=== PATIENT | male | born 1935 | race Caucasian/White ===

== ENCOUNTER 2019-01-27 12:10 | Inpatient (IN) | payer OTHER ==
[~2019-01-27] VITALS: Ht 172.7 cm; Wt 69.5 kg
[2019-01-27] MEDS ORDERED: SODIUM CHLORIDE 0.9% 1,000 ML IV ONE (12:15)
[2019-01-27] MEDS ORDERED: cefTRIAXone 1GM/50ML D5W 50 ML IV ONE (12:15)
[2019-01-27] MEDS ORDERED: ACETAMINOPHEN 650 mg PER 20 mL UD ONE (13:37)
[2019-01-27] MEDS ORDERED: ACETAMINOPHEN 325 MG TAB PO ONE (13:45)
[2019-01-27] MEDS ORDERED: ACETAMINOPHEN 650 mg PER 20 mL UD GT ONE (13:45)
[2019-01-27 13:49] LABS: Basophils # (auto) 0 uL; Basophils % (auto) 0.1 % (0.0-2.0); Eosinophils # (auto) 0 uL; Hematocrit 42.4 % (41.0-53.0); Hemoglobin 13.9 g/dL (13.5-17.5); Lymphocytes # (auto) 0.5 uL; Lymphocytes % (auto) 4.6 % (10.0-50.0); Mean Corpuscular Hemoglobin 30.2 pg (28.0-32.0); Mean Corpuscular Hgb Conc. 32.8 g/dL (32.0-36.0); Mean Corpuscular Volume 92.1 fL (80.0-100.0); Monocytes # (auto) 0.4 uL; Monocytes % (auto) 3.7 % (0.0-12.0); Neutrophils # (auto) 10.5 uL; Neutrophils % (auto) 91.6 % (37.0-80.0); Platelet Count (auto) 143 10^3/uL (140-450); Red Blood Cells 4.61 10^6/uL (4.5-5.90); Red Cell Distribution Width 13.1 % (11.8-14.3); White Blood Cell 11.5 10^3/uL (4.4-10.8)
[2019-01-27 13:51] LABS: Chloride 107 mmol/L (98-107); Potassium 3.9 mmol/L (3.5-5.1); Sodium 139 mmol/L (136-145)
[2019-01-27 13:56] LABS: Albumin 2.9 g/dL (3.4-5.0); Anion Gap 9 (5-15); Blood Urea Nitrogen 32 mg/dL (7-18); Calcium 7.9 mg/dL (8.5-10.1); Carbon Dioxide 23 mmol/L (21-32); Glucose 113 mg/dL (74-106); INR 1.09 (0.9-1.15); Partial Thromboplastin Time 30.6 sec (23.78-33.04); Prothrombin Time 11.6 sec (9.27-12.13)
[2019-01-27 14:00] LABS: Alanine Aminotransferase 24 U/L (16-61); Aspartate Aminotransferase 65 U/L (15-37); BUN/Creatinine Ratio 29.6; GFR African American 84 mL/min; GFR Non-African American 69 mL/min; Total Protein 6.9 g/dL (6.4-8.2)
[2019-01-27] MEDS ORDERED: ACETAMINOPHEN 650 mg PER 20 mL UD PO ONE (14:00)
[2019-01-27 14:04] LABS: Alkaline Phosphatase 63 U/L (45-117)
[2019-01-27 14:24] LABS: Urine Bacteria NONE SEEN /hpf (None Seen); Urine Blood 3+ /uL (Negative); Urine Budding Yeast OCCASIONAL /hpf (None Seen); Urine Hyaline Cast FEW /lpf (0 - 2); Urine Mucus FEW (None Seen); Urine Specific Gravity 1.022 (1.001-1.035); Urine WBC 3 /hpf (0 - 3)
[2019-01-27] MEDS ORDERED: HYDROcodone-ACET 5/325MG TAB PO PRN (15:00)
[2019-01-27] MEDS ORDERED: ONDANSETRON HCL 4 MG/2 ML VIAL IV PRN (15:00)
[2019-01-27] MEDS ORDERED: ALBUTEROL SULF 2.5 MG/0.5ML(0.5%) NEB SOLN NEB PRN (15:00)
[2019-01-27] MEDS ORDERED: IPRATROPIUM BROM 0.5 MG/2.5ML INH SOL NEB PRN (15:00)
[2019-01-27] MEDS ORDERED: NITROGLYCERIN 0.4 MG SL TAB SL PRN (15:00)
[2019-01-27] MEDS ORDERED: MORPHINE SULF INJ 2 MG/ML SYRINGE 1ML IV PRN ×2 (15:00)
[2019-01-27] MEDS: MULTIPLE VITAMIN 10 ML, MAGNESIUM SULF SDV 50% 8 MEQ, THIAMINE INJ 100 MG in D5W/SOD CH... IV SCH (15:00)
[2019-01-27] MEDS ORDERED: ACETAMINOPHEN 500 MG TAB PO PRN (15:00)
[2019-01-27 15:53] VITALS: BP 144/75
[2019-01-27 15:56] VITALS: BP 144/75
[2019-01-27] MEDS: LEVOFLOXACIN 750MG 150 ML IV SCH (16:08)
[2019-01-27] MEDS: TAMSULOSIN HYDROCHLORIDE 0.4 MG CAP PO SCH (18:14)
[2019-01-27] MEDS: ENSURE CLEAR Mixed Berry 8oz Carton PO SCH (18:14)
[2019-01-27] MEDS: CARBIDOPA W LEVODOPA 10/100mg TABLET PO SCH (22:20)
[2019-01-27 23:07] VITALS: BP 155/69
[2019-01-27 23:15] VITALS: BP 155/69
[2019-01-28] MEDS ORDERED: GABA100C9 PO (01:29)
[2019-01-28] MEDS ORDERED: CARB10TA7 PO (01:29)
[2019-01-28] MEDS ORDERED: TAMS0.4C36 PO (01:29)
[2019-01-28 05:06] VITALS: BP 127/67
[2019-01-28] MEDS: CARBIDOPA W LEVODOPA 10/100mg TABLET PO SCH ×3 (05:57→21:44)
[2019-01-28 06:23] LABS: Basophils # (auto) 0 uL; Basophils % (auto) 0.1 % (0.0-2.0); Eosinophils # (auto) 0 uL; Hematocrit 38.3 % (41.0-53.0); Hemoglobin 13.2 g/dL (13.5-17.5); Lymphocytes # (auto) 0.8 uL; Lymphocytes % (auto) 9.7 % (10.0-50.0); Mean Corpuscular Hemoglobin 31.1 pg (28.0-32.0); Mean Corpuscular Hgb Conc. 34.4 g/dL (32.0-36.0); Mean Corpuscular Volume 90.6 fL (80.0-100.0); Monocytes # (auto) 0.3 uL; Monocytes % (auto) 3.5 % (0.0-12.0); Neutrophils # (auto) 7.4 uL; Neutrophils % (auto) 86.7 % (37.0-80.0); Platelet Count (auto) 132 10^3/uL (140-450); Red Blood Cells 4.23 10^6/uL (4.5-5.90); Red Cell Distribution Width 12.9 % (11.8-14.3); White Blood Cell 8.5 10^3/uL (4.4-10.8)
[2019-01-28 06:40] LABS: Potassium 3.9 mmol/L (3.5-5.1)
[2019-01-28 06:46] LABS: BUN/Creatinine Ratio 28.3
[2019-01-28 08:00] VITALS: BP 137/72
[2019-01-28] MEDS: ENSURE CLEAR Mixed Berry 8oz Carton PO SCH ×3 (08:00→17:43)
[2019-01-28 09:00] VITALS: BP 137/72
[2019-01-28] MEDS: PANTOPRAZOLE 40 MG/10 ML VIAL IV SCH (11:13)
[2019-01-28] MEDS: LEVOFLOXACIN 750MG 150 ML IV SCH (11:13)
[2019-01-28] MEDS: GABAPENTIN 100 MG CAP PO SCH (11:14)
[2019-01-28] MEDS: ASPirin-EC 81 mg tab PO SCH (11:14)
[2019-01-28 13:00] VITALS: BP 134/75
[2019-01-28] MEDS: MULTIPLE VITAMIN 10 ML, MAGNESIUM SULF SDV 50% 8 MEQ, THIAMINE INJ 100 MG in D5W/SOD CH... IV SCH (13:54)
[2019-01-28 17:08] VITALS: BP 157/87
[2019-01-28] MEDS: TAMSULOSIN HYDROCHLORIDE 0.4 MG CAP PO SCH (17:43)
[2019-01-28 21:00] VITALS: BP 136/75
[2019-01-28] MEDS: SENNA 8.6 MG TAB PO SCH (21:42)
[2019-01-28] MEDS: DOCUSATE SOD 100 MG CAP PO SCH (21:48)
[2019-01-29 05:00] VITALS: BP 152/79
[2019-01-29] MEDS: CARBIDOPA W LEVODOPA 10/100mg TABLET PO SCH ×3 (05:46→22:29)
[2019-01-29 06:40] LABS: Basophils # (auto) 0 uL; Basophils % (auto) 0.2 % (0.0-2.0); Eosinophils # (auto) 0 uL; Eosinophils % (auto) 0.5 % (0.0-7.0); Hematocrit 37.4 % (41.0-53.0); Hemoglobin 12.6 g/dL (13.5-17.5); Lymphocytes # (auto) 0.8 uL; Lymphocytes % (auto) 11.9 % (10.0-50.0); Mean Corpuscular Hgb Conc. 33.7 g/dL (32.0-36.0); Mean Corpuscular Volume 91.8 fL (80.0-100.0); Monocytes # (auto) 0.3 uL; Monocytes % (auto) 4.9 % (0.0-12.0); Neutrophils # (auto) 5.5 uL; Neutrophils % (auto) 82.5 % (37.0-80.0); Nucleated Red Blood Cells % 0.1 %; Platelet Count (auto) 139 10^3/uL (140-450); Red Blood Cells 4.07 10^6/uL (4.5-5.90); Red Cell Distribution Width 13.1 % (11.8-14.3); White Blood Cell 6.7 10^3/uL (4.4-10.8)
[2019-01-29 06:52] LABS: BUN/Creatinine Ratio 24.7; Calcium 7.7 mg/dL (8.5-10.1); Magnesium 2.5 mg/dL (1.6-2.6)
[2019-01-29 08:00] VITALS: BP 131/71
[2019-01-29] MEDS: ENSURE CLEAR Mixed Berry 8oz Carton PO SCH ×3 (08:00→17:36)
[2019-01-29 09:38] VITALS: BP 131/71
[2019-01-29] MEDS: LEVOFLOXACIN 750MG 150 ML IV SCH (10:18)
[2019-01-29] MEDS: DOCUSATE SOD 100 MG CAP PO SCH ×2 (10:18→22:00)
[2019-01-29] MEDS: PANTOPRAZOLE 40 MG/10 ML VIAL IV SCH (10:18)
[2019-01-29] MEDS: GABAPENTIN 100 MG CAP PO SCH (10:19)
[2019-01-29] MEDS: ASPirin-EC 81 mg tab PO SCH (10:19)
[2019-01-29] MEDS: MULTIPLE VITAMIN 10 ML, MAGNESIUM SULF SDV 50% 8 MEQ, THIAMINE INJ 100 MG in D5W/SOD CH... IV SCH (12:35)
[2019-01-29 14:00] VITALS: BP 156/82
[2019-01-29] MEDS: ENOXAPARIN SOD 40 MG/0.4 ML SYRINGE SC SCH (14:19)
[2019-01-29 17:00] VITALS: BP 130/59
[2019-01-29] MEDS: TAMSULOSIN HYDROCHLORIDE 0.4 MG CAP PO SCH (17:36)
[2019-01-29 22:00] VITALS: BP 150/72
[2019-01-29] MEDS: SENNA 8.6 MG TAB PO SCH (22:29)
[2019-01-30 05:43] VITALS: BP 106/69
[2019-01-30] MEDS: CARBIDOPA W LEVODOPA 10/100mg TABLET PO SCH ×3 (05:56→22:17)
[2019-01-30] MEDS: ENSURE CLEAR Mixed Berry 8oz Carton PO SCH ×3 (09:03→18:00)
[2019-01-30] MEDS: DOCUSATE SOD 100 MG CAP PO SCH ×2 (09:04→22:00)
[2019-01-30] MEDS: LEVOFLOXACIN 750MG 150 ML IV SCH (09:04)
[2019-01-30] MEDS: PANTOPRAZOLE 40 MG/10 ML VIAL IV SCH (09:04)
[2019-01-30] MEDS: GABAPENTIN 100 MG CAP PO SCH (09:05)
[2019-01-30] MEDS: ENOXAPARIN SOD 40 MG/0.4 ML SYRINGE SC SCH (09:05)
[2019-01-30] MEDS: ASPirin-EC 81 mg tab PO SCH (09:22)
[2019-01-30] MEDS: MULTIPLE VITAMIN 10 ML, MAGNESIUM SULF SDV 50% 8 MEQ, THIAMINE INJ 100 MG in D5W/SOD CH... IV SCH (12:34)
[2019-01-30 16:34] VITALS: BP 106/69
[2019-01-30 17:00] VITALS: BP 142/74
[2019-01-30 17:15] VITALS: BP 96/51
[2019-01-30] MEDS: TAMSULOSIN HYDROCHLORIDE 0.4 MG CAP PO SCH (18:03)
[2019-01-30 21:49] VITALS: BP 151/77
[2019-01-30] MEDS: SENNA 8.6 MG TAB PO SCH (22:17)
[2019-01-31 05:33] VITALS: BP 159/85
[2019-01-31] MEDS: CARBIDOPA W LEVODOPA 10/100mg TABLET PO SCH ×3 (05:49→21:55)
[2019-01-31] MEDS: ENSURE CLEAR Mixed Berry 8oz Carton PO SCH ×3 (08:00→18:27)
[2019-01-31 08:17] VITALS: BP 140/79
[2019-01-31] MEDS: GABAPENTIN 100 MG CAP PO SCH (10:47)
[2019-01-31] MEDS: PANTOPRAZOLE 40 MG/10 ML VIAL IV SCH (10:47)
[2019-01-31] MEDS: ENOXAPARIN SOD 40 MG/0.4 ML SYRINGE SC SCH (10:48)
[2019-01-31] MEDS: DOCUSATE SOD 100 MG CAP PO SCH ×2 (11:06→21:55)
[2019-01-31] MEDS: ASPirin-EC 81 mg tab PO SCH (11:07)
[2019-01-31] MEDS: LEVOFLOXACIN 750MG 150 ML IV SCH (11:08)
[2019-01-31 11:34] VITALS: BP 137/64
[2019-01-31] MEDS: MULTIPLE VITAMIN 10 ML, MAGNESIUM SULF SDV 50% 8 MEQ, THIAMINE INJ 100 MG in D5W/SOD CH... IV SCH (12:09)
[2019-01-31 16:43] VITALS: BP 132/76
[2019-01-31] MEDS: TAMSULOSIN HYDROCHLORIDE 0.4 MG CAP PO SCH (18:42)
[2019-01-31 21:00] VITALS: BP 146/73
[2019-01-31] MEDS: SENNA 8.6 MG TAB PO SCH (21:55)
[2019-02-01 04:50] VITALS: BP 159/84
[2019-02-01] MEDS: CARBIDOPA W LEVODOPA 10/100mg TABLET PO SCH ×3 (06:04→21:54)
[2019-02-01] MEDS: ENSURE CLEAR Mixed Berry 8oz Carton PO SCH ×3 (08:00→17:48)
[2019-02-01 09:09] VITALS: BP 141/74
[2019-02-01] MEDS: ASPirin-EC 81 mg tab PO SCH (09:17)
[2019-02-01] MEDS: LEVOFLOXACIN 750MG 150 ML IV SCH (09:17)
[2019-02-01] MEDS: ENOXAPARIN SOD 40 MG/0.4 ML SYRINGE SC SCH (09:18)
[2019-02-01] MEDS: GABAPENTIN 100 MG CAP PO SCH (09:18)
[2019-02-01] MEDS: DOCUSATE SOD 100 MG CAP PO SCH ×2 (09:25→21:54)
[2019-02-01] MEDS: PANTOPRAZOLE 40 MG/10 ML VIAL IV SCH (09:25)
[2019-02-01 12:37] VITALS: BP 129/72
[2019-02-01] MEDS: MULTIPLE VITAMIN 10 ML, MAGNESIUM SULF SDV 50% 8 MEQ, THIAMINE INJ 100 MG in D5W/SOD CH... IV SCH (14:29)
[2019-02-01 16:35] VITALS: BP 128/72
[2019-02-01] MEDS: TAMSULOSIN HYDROCHLORIDE 0.4 MG CAP PO SCH (17:48)
[2019-02-01] MEDS: SENNA 8.6 MG TAB PO SCH (21:54)
[2019-02-01 22:00] VITALS: BP 160/77
[2019-02-02 05:00] VITALS: BP 154/95
[2019-02-02] MEDS: CARBIDOPA W LEVODOPA 10/100mg TABLET PO SCH ×3 (06:17→21:58)
[2019-02-02] MEDS: ENSURE CLEAR Mixed Berry 8oz Carton PO SCH ×3 (08:00→18:22)
[2019-02-02 09:00] VITALS: BP 156/80
[2019-02-02] MEDS: ASPirin-EC 81 mg tab PO SCH (10:00)
[2019-02-02] MEDS: GABAPENTIN 100 MG CAP PO SCH (10:00)
[2019-02-02] MEDS: DOCUSATE SOD 100 MG CAP PO SCH ×2 (10:00→21:57)
[2019-02-02] MEDS: LEVOFLOXACIN 750MG 150 ML IV SCH (10:41)
[2019-02-02] MEDS: ENOXAPARIN SOD 40 MG/0.4 ML SYRINGE SC SCH (10:41)
[2019-02-02] MEDS: PANTOPRAZOLE 40 MG/10 ML VIAL IV SCH (10:41)
[2019-02-02 13:00] VITALS: BP 129/72
[2019-02-02] MEDS: MULTIPLE VITAMIN 10 ML, MAGNESIUM SULF SDV 50% 8 MEQ, THIAMINE INJ 100 MG in D5W/SOD CH... IV SCH (13:31)
[2019-02-02 16:23] VITALS: BP 156/80
[2019-02-02 16:47] VITALS: BP 143/84
[2019-02-02] MEDS: TAMSULOSIN HYDROCHLORIDE 0.4 MG CAP PO SCH (18:00)
[2019-02-02] MEDS: SENNA 8.6 MG TAB PO SCH (21:57)
[2019-02-02 23:38] VITALS: BP 144/79
[2019-02-03 05:00] VITALS: BP 152/82
[2019-02-03] MEDS: CARBIDOPA W LEVODOPA 10/100mg TABLET PO SCH ×2 (05:28→13:51)
[2019-02-03] MEDS: ENSURE CLEAR Mixed Berry 8oz Carton PO SCH ×3 (08:00→17:46)
[2019-02-03 09:00] VITALS: BP 149/76
[2019-02-03] MEDS: DOCUSATE SOD 100 MG CAP PO SCH (10:00)
[2019-02-03] MEDS: ASPirin-EC 81 mg tab PO SCH (10:00)
[2019-02-03] MEDS: GABAPENTIN 100 MG CAP PO SCH (10:00)
[2019-02-03] MEDS: PANTOPRAZOLE 40 MG/10 ML VIAL IV SCH (12:00)
[2019-02-03] MEDS: LEVOFLOXACIN 750MG 150 ML IV SCH (12:00)
[2019-02-03] MEDS: MULTIPLE VITAMIN 10 ML, MAGNESIUM SULF SDV 50% 8 MEQ, THIAMINE INJ 100 MG in D5W/SOD CH... IV SCH (12:00)
[2019-02-03] MEDS: ENOXAPARIN SOD 40 MG/0.4 ML SYRINGE SC SCH (12:00)
[2019-02-03 13:00] VITALS: BP 151/88
[2019-02-03 16:47] VITALS: BP 133/84
[2019-02-03] MEDS: TAMSULOSIN HYDROCHLORIDE 0.4 MG CAP PO SCH (17:46)
== END 2019-02-03 21:15 | disposition hospice, home (50) | DRG 871 ==
LOC: ER 12:10 → TELE 14:59 → TELE-WESTW 23:08
PROVIDERS: ADMIT Nurse Practitioner Acute Care; ATTEND Internal Medicine
DX: A41.9 Sepsis, unspecified organism (principal); J18.1 Lobar pneumonia, unspecified organism; E44.1 Mild protein-calorie malnutrition; G93.40 Encephalopathy, unspecified; M81.0 Age-related osteoporosis without current pathological fracture; G62.9 Polyneuropathy, unspecified; K59.00 Constipation, unspecified; N40.0 Benign prostatic hyperplasia without lower urinary tract symptoms; Y95 Nosocomial condition; G20 Parkinson's disease; F02.80 Dementia in other diseases classified elsewhere, unspecified severity, without behavioral disturbance, psychotic disturbance, mood disturbance, and anxiety; G30.9 Alzheimer's disease, unspecified; E78.5 Hyperlipidemia, unspecified; E86.0 Dehydration; F17.200 Nicotine dependence, unspecified, uncomplicated; I50.9 Heart failure, unspecified; R62.7 Adult failure to thrive; M25.551 Pain in right hip; N18.3 Chronic kidney disease, stage 3 (moderate); Z86.73 Personal history of transient ischemic attack (TIA), and cerebral infarction without residual deficits
CPT/HCPCS: 36415; 51702; 70450; 71045; 74176; 80048; 80053; 81001; 83605; 83735; 83880; 84484; 85025; 85610; 85730; 87040; 87081; 87086; 92610; 93005; 94761; 96365; 96366; 96367; 96375; C9113; G0378; J0696; J1956